=== PATIENT | female | born 1965 | race Two or more races ===

== ENCOUNTER 2017-12-27 10:53 | Outpatient (CLI) | payer OTHER ==
[~2017-12-27 10:53] MED LIST: IMODIUM A-D2 MG PO; LEVSIN/SL0.125 MG SL; PEPCID20 MG PO; TIGAN300 MG PO
== END 2017-12-27 11:00 | disposition home or self-care (01) ==
LOC: MAMO-SONO 10:53
DX: Z12.31 Encounter for screening mammogram for malignant neoplasm of breast (principal); N64.4 Mastodynia

== ENCOUNTER 2018-03-22 15:33 | Outpatient (CLI) | payer OTHER | END 2018-03-22 16:14 | disposition home or self-care (01) | LOC: RAD 15:33 | DX: R05 Cough (principal) ==

== ENCOUNTER 2018-08-03 14:32 | Outpatient (CLI) | payer OTHER | END 2018-08-03 14:43 | disposition home or self-care (01) | LOC: RAD 501 14:32 | DX: M54.5 Low back pain (principal) ==

== ENCOUNTER 2019-07-27 11:32 | Outpatient (CLI) | payer OTHER | END 2019-07-27 13:36 | disposition home or self-care (01) | LOC: MAMO-SONO 11:32 | DX: Z12.31 Encounter for screening mammogram for malignant neoplasm of breast (principal); Z87.898 Personal history of other specified conditions; N64.4 Mastodynia ==

== ENCOUNTER → 2019-08-21 | Outpatient (CLI) | payer OTHER | END | disposition home or self-care (01) | LOC: RAD 11:27 → MRI 11:45 | DX: M43.16 Spondylolisthesis, lumbar region (principal) ==

== ENCOUNTER 2020-05-20 16:55 | Outpatient (CLI) | payer OTHER | END 2020-05-20 16:58 | disposition home or self-care (01) | LOC: LAB 16:55 | PROVIDERS: ATTEND Family Medicine | DX: R05 Cough (principal); Z20.828 Contact with and (suspected) exposure to other viral communicable diseases ==

== ENCOUNTER 2021-06-24 09:27 | Outpatient (CLI) | payer OTHER | END 2021-06-24 09:31 | disposition home or self-care (01) | LOC: MAMO-SONO 09:27 | PROVIDERS: ATTEND Obstetrics & Gynecology Obstetrics | DX: N64.59 Other signs and symptoms in breast (principal); N64.4 Mastodynia; Z12.31 Encounter for screening mammogram for malignant neoplasm of breast ==

== ENCOUNTER 2022-07-22 08:57 | Outpatient (CLI) | payer OTHER | END 2022-07-22 09:09 | disposition home or self-care (01) | LOC: MAMO-SONO 08:57 | PROVIDERS: ATTEND Obstetrics & Gynecology Obstetrics | DX: N64.4 Mastodynia (principal) ==

== ENCOUNTER 2023-04-29 10:59 | Outpatient (CLI) | payer OTHER | END 2023-04-29 11:08 | disposition home or self-care (01) | LOC: RAD 10:59 | PROVIDERS: ATTEND Physical Medicine & Rehabilitation | DX: M54.59 Other low back pain (principal) ==

== ENCOUNTER 2023-08-11 08:46 | Outpatient (CLI) | payer OTHER | END 2023-08-11 09:02 | disposition home or self-care (01) | LOC: MAMO-SONO 08:46 | PROVIDERS: ATTEND Obstetrics & Gynecology Obstetrics | DX: N64.4 Mastodynia (principal) ==

== ENCOUNTER 2024-08-30 10:38 | Outpatient (CLI) | payer OTHER | END 2024-08-30 10:48 | disposition home or self-care (01) | LOC: MAMO-SONO 10:38 | PROVIDERS: ATTEND Obstetrics & Gynecology Obstetrics | DX: N64.4 Mastodynia (principal) ==

== ENCOUNTER 2025-06-20 07:47 | Outpatient (CLI) | payer OTHER | END 2025-06-20 07:48 | disposition home or self-care (01) | LOC: SONOGRAMA 07:47 | PROVIDERS: ATTEND Internal Medicine | DX: R10.13 Epigastric pain (principal); R10.11 Right upper quadrant pain ==